=== PATIENT | female | born 1960 | race Caucasian/White ===

== ENCOUNTER 2019-05-09 06:30 | Day surgery (SDC) | payer OTHER ==
[~2019-05-09 06:30] MED LIST: BENADRYL50 MG PO; CLARITIN10 M1 PO
[2019-05-09] MEDS ORDERED: PERCOCET 5-3251 EACH PO (09:49)
== END 2019-05-09 12:00 | disposition home or self-care (01) ==
LOC: CIR.AMB 06:30
DX: C50.811 Malignant neoplasm of overlapping sites of right female breast (principal)
CPT/HCPCS: 36561; C1751